=== PATIENT | female | born 1950 | race Caucasian/White ===

== ENCOUNTER 2019-02-16 13:17 | Emergency (ER) | payer BC, MEDICAID ==
[~2019-02-16] VITALS: Ht 160 cm; Wt 82.0 kg
[2019-02-16] MEDS ORDERED: OMEP20CA5 PO (13:24)
[2019-02-16] MEDS ORDERED: ASPI-1393 PO (13:24)
[2019-02-16] MEDS ORDERED: TETANUS, DIPHTHERIA, PERTUSSIS VAC/PF 0.5ML (>7YR OLD) IM ONE (14:30)
[2019-02-16] MEDS ORDERED: ACETAMINOPHEN 325MG TABLET PO ONE (14:30)
[2019-02-16] MEDS ORDERED: BACITRACIN ZINC OINT UDPKT TOP ONE (14:30)
[2019-02-16] MEDS ORDERED: BACITRACIN 15GM TUBE TOP NR (15:15)
[2019-02-16] MEDS ORDERED: LIDOCAINE HCL/PF 1% 10 MG/ML 5ML VIAL IJ ONE (15:45)
[2019-02-16 17:14] VITALS: BP 129/61
== END 2019-02-16 17:14 | disposition home or self-care (01) ==
LOC: ER 13:17
DX: S91.012A Laceration without foreign body, left ankle, initial encounter (principal); S90.414A Abrasion, right lesser toe(s), initial encounter; I51.9 Heart disease, unspecified; E11.9 Type 2 diabetes mellitus without complications; Z95.2 Presence of prosthetic heart valve; Z90.49 Acquired absence of other specified parts of digestive tract; Z98.890 Other specified postprocedural states; Z79.82 Long term (current) use of aspirin; W54.0XXA Bitten by dog, initial encounter; Y93.89 Activity, other specified; Y92.89 Other specified places as the place of occurrence of the external cause; Y99.8 Other external cause status
CPT/HCPCS: 12002; 73610; 73630; 90471; 90715; 99283

== ENCOUNTER 2019-02-19 12:02 | Emergency (ER) | payer BC, MEDICAID ==
[~2019-02-19] VITALS: Ht 157.5 cm; Wt 85.0 kg
[~2019-02-19 12:02] MED LIST: ASPI-1393 PO; OMEP20CA5 PO
[2019-02-19 13:32] VITALS: BP 142/86
== END 2019-02-19 15:01 | disposition home or self-care (01) ==
LOC: ER 12:02
DX: S91.312D Laceration without foreign body, left foot, subsequent encounter (principal); Z88.0 Allergy status to penicillin; Z79.82 Long term (current) use of aspirin; Z90.89 Acquired absence of other organs; X58.XXXD Exposure to other specified factors, subsequent encounter
CPT/HCPCS: 99283

== ENCOUNTER 2019-02-21 23:26 | Inpatient (IN) | payer MEDICARE, MEDICAID ==
[~2019-02-21] VITALS: Ht 153 cm; Wt 84.8 kg
[2019-02-22] MEDS ORDERED: VANCOMYCIN 1 G PREMIX 200 ML IV SCH ×2 (01:45→20:00)
[2019-02-22] MEDS ORDERED: LEVOFLOXACIN 500MG PREMIX 100 ML IV ONE (01:45)
[2019-02-22 02:18] LABS: BASOPHILS % 0.9 % (0.0-2.0); EOSINOPHILS % 3.9 % (0.0-5.0); HEMATOCRIT. 34.8 % (36.0-48.0); HEMOGLOBIN. 11.9 g/dL (12.0-16.0); LYMPHOCYTES % 18.7 % (20.0-50.0); MEAN CORPUSCULAR HEMOGLOBIN 29.8 pg (28.0-32.0); MEAN CORPUSCULAR VOLUME 87.5 fL (81.0-99.0); MEAN PLATELET VOLUME 7.9 fl (7.4-10.4); MONOCYTES % 11.3 % (2.0-8.0); NEUTROPHILS % 65.2 % (40.0-76.0); PLATELET 77 x1000/uL (130-400); RED BLOOD CELL COUNT 3.98 mill/uL (4.2-5.4); RED CELL DISTRIBUTION WIDTH 15.4 % (11.6-14.6)
[2019-02-22 02:28] LABS: CHLORIDE 108 mEq/L (98-107)
[2019-02-22 05:00] VITALS: BP 114/45
[2019-02-22] MEDS: MORPHINE SULFATE 2 MG/ML CPJ (NOT FOR IM USE) IV PRN ×3 (06:27→23:54)
[2019-02-22] MEDS ORDERED: AM500 PO (07:46)
[2019-02-22] MEDS ORDERED: ADAL20KI SQ (07:46)
[2019-02-22 08:00] VITALS: BP 120/57
[2019-02-22] MEDS ORDERED: ENOXAPARIN 40MG/0.4ML SYR SUBCUT SCH (09:00)
[2019-02-22 10:12] LABS: EOSINOPHILS % 3.9 % (0.0-5.0); HEMATOCRIT. 33.8 % (36.0-48.0); HEMOGLOBIN. 11.3 g/dL (12.0-16.0); LYMPHOCYTES % 24.2 % (20.0-50.0); MEAN CORPUSCULAR HEMOGLOBIN 29.5 pg (28.0-32.0); MEAN CORPUSCULAR VOLUME 87.9 fL (81.0-99.0); MONOCYTES % 12.7 % (2.0-8.0); NEUTROPHILS % 58.2 % (40.0-76.0); PLATELET 76 x1000/uL (130-400); RED BLOOD CELL COUNT 3.84 mill/uL (4.2-5.4); RED CELL DISTRIBUTION WIDTH 15.4 % (11.6-14.6)
[2019-02-22 10:29] LABS: CHLORIDE 108 mEq/L (98-107)
[2019-02-22 12:00] VITALS: BP 115/65
[2019-02-22 16:00] VITALS: BP 105/61
[2019-02-22] MEDS: MEROPENEM 500 MG in SODIUM CHLORIDE 0.9% 50 ML IV SCH ×2 (17:51→23:40)
[2019-02-22] MEDS ORDERED: ONDANSETRON HCL 4MG/2ML INJ IV PRN (18:00)
[2019-02-22] MEDS: VANCOMYCIN 1 G PREMIX 200 ML IV SCH (20:26)
[2019-02-23] VITALS: BP 135/61
[2019-02-23 04:00] VITALS: BP 102/46
[2019-02-23 06:04] LABS: HEMATOCRIT. 33.7 % (36.0-48.0); HEMOGLOBIN. 11.4 g/dL (12.0-16.0); MEAN CORPUSCULAR HEMOGLOBIN 29.5 pg (28.0-32.0); MEAN CORPUSCULAR VOLUME 87.4 fL (81.0-99.0); PLATELET 76 x1000/uL (130-400); RED BLOOD CELL COUNT 3.86 mill/uL (4.2-5.4); RED CELL DISTRIBUTION WIDTH 15.6 % (11.6-14.6)
[2019-02-23 06:24] LABS: CHLORIDE 108 mEq/L (98-107)
[2019-02-23 08:00] VITALS: BP 106/73
[2019-02-23] MEDS: MEROPENEM 500 MG in SODIUM CHLORIDE 0.9% 50 ML IV SCH ×2 (08:40→15:49)
[2019-02-23 10:41] LABS: CLARITY URINE CLEAR (CLEAR); COLOR URINE YELLOW (YELLOW); KETONES URINE NEGATIVE (NEGATIVE); LEUKOCYTE ESTERASE URINE NEGATIVE (NEGATIVE); NITRITE URINE NEGATIVE (NEGATIVE); OCCULT BLOOD URINE NEGATIVE (NEGATIVE); PROTEIN URINE NEGATIVE (NEGATIVE); SPECIFIC GRAVITY URINE 1.014 (1.005-1.030); UROBILINOGEN URINE 0.2 E.U./dL (0.2-1.0)
[2019-02-23 11:55] LABS: PLATELET ESTIMATE DECREASED
[2019-02-23 12:00] VITALS: BP 106/73
[2019-02-23] MEDS: MORPHINE SULFATE 2 MG/ML CPJ (NOT FOR IM USE) IV PRN ×2 (12:47→17:39)
[2019-02-23] MEDS ORDERED: LIDOCAINE HCL/EPINEPHRINE 1%-EPI 1:100,000 20 ML VIAL INFIL ONE (14:00)
[2019-02-23 16:00] VITALS: BP 107/65
[2019-02-23 20:00] VITALS: BP 130/66
[2019-02-23] MEDS: MORPHINE SULFATE 4 MG/ML CPJ (NOT FOR IM USE) IV PRN (20:12)
[2019-02-23] MEDS: ACETAMINOPHEN 325MG TABLET PO PRN (20:13)
[2019-02-23] MEDS: VANCOMYCIN 1 G PREMIX 200 ML IV SCH (21:26)
[2019-02-24] VITALS: BP 123/58
[2019-02-24 04:00] VITALS: BP 126/58
[2019-02-24 05:59] LABS: CHLORIDE 108 mEq/L (98-107)
[2019-02-24 06:21] LABS: BASOPHILS % 0.8 % (0.0-2.0); EOSINOPHILS % 4.6 % (0.0-5.0); HEMATOCRIT. 33.1 % (36.0-48.0); HEMOGLOBIN. 11.4 g/dL (12.0-16.0); LYMPHOCYTES % 23.2 % (20.0-50.0); MEAN CORPUSCULAR VOLUME 87.2 fL (81.0-99.0); MEAN PLATELET VOLUME 8.1 fl (7.4-10.4); NEUTROPHILS % 58.4 % (40.0-76.0); PLATELET 84 x1000/uL (130-400); RED BLOOD CELL COUNT 3.79 mill/uL (4.2-5.4); RED CELL DISTRIBUTION WIDTH 15.3 % (11.6-14.6)
[2019-02-24 08:00] VITALS: BP 116/60
[2019-02-24] MEDS: MEROPENEM 500 MG in SODIUM CHLORIDE 0.9% 50 ML IV SCH ×5 (09:34→23:17)
[2019-02-24] MEDS: MORPHINE SULFATE 2 MG/ML CPJ (NOT FOR IM USE) IV PRN ×2 (09:41→18:18)
[2019-02-24 12:00] VITALS: BP 123/54
[2019-02-24] MEDS: VANCOMYCIN 1 G PREMIX 200 ML IV SCH (12:04)
[2019-02-24 16:00] VITALS: BP 122/48
[2019-02-24 20:00] VITALS: BP 117/60
[2019-02-25] VITALS: BP 128/64
[2019-02-25] MEDS: VANCOMYCIN 1 G PREMIX 200 ML IV SCH ×2 (01:34→13:16)
[2019-02-25] MEDS: MORPHINE SULFATE 2 MG/ML CPJ (NOT FOR IM USE) IV PRN ×2 (03:42→10:06)
[2019-02-25 04:00] VITALS: BP 130/59
[2019-02-25 06:25] LABS: CHLORIDE 109 mEq/L (98-107)
[2019-02-25 08:00] VITALS: BP 115/54
[2019-02-25] MEDS: MEROPENEM 500 MG in SODIUM CHLORIDE 0.9% 50 ML IV SCH ×2 (09:08→18:09)
[2019-02-25 12:00] VITALS: BP 117/51
[2019-02-25 16:00] VITALS: BP 125/50
[2019-02-25 20:00] VITALS: BP 152/71
[2019-02-26] VITALS: BP 123/49
[2019-02-26] MEDS: MEROPENEM 500 MG in SODIUM CHLORIDE 0.9% 50 ML IV SCH ×2 (00:31→08:35)
[2019-02-26] MEDS: MORPHINE SULFATE 4 MG/ML CPJ (NOT FOR IM USE) IV PRN (00:32)
[2019-02-26] MEDS: VANCOMYCIN 1 G PREMIX 200 ML IV SCH ×2 (01:24→13:18)
[2019-02-26 04:00] VITALS: BP 139/64
[2019-02-26 08:00] VITALS: BP 134/61
[2019-02-26 12:24] VITALS: BP 124/50
[2019-02-26 16:00] VITALS: BP 118/58
[2019-02-26] MEDS: CEFTRIAXONE 1 G PREMIX 50 ML IV SCH (17:01)
[2019-02-26] MEDS: ACETAMINOPHEN 325MG TABLET PO PRN (17:07)
[2019-02-26 20:00] VITALS: BP 114/52
[2019-02-27] VITALS: BP 120/59
[2019-02-27 04:00] VITALS: BP 123/55
[2019-02-27 06:35] LABS: BASOPHILS % 0.7 % (0.0-2.0); HEMOGLOBIN. 11.7 g/dL (12.0-16.0); LYMPHOCYTES % 22.9 % (20.0-50.0); MEAN CORPUSCULAR HEMOGLOBIN 29.9 pg (28.0-32.0); MEAN CORPUSCULAR VOLUME 86.9 fL (81.0-99.0); MEAN PLATELET VOLUME 8.4 fl (7.4-10.4); MONOCYTES % 14.5 % (2.0-8.0); NEUTROPHILS % 57.9 % (40.0-76.0); PLATELET 77 x1000/uL (130-400); RED BLOOD CELL COUNT 3.91 mill/uL (4.2-5.4); RED CELL DISTRIBUTION WIDTH 15.3 % (11.6-14.6)
[2019-02-27 07:30] LABS: CHLORIDE 113 mEq/L (98-107)
[2019-02-27 08:00] VITALS: BP 121/64
[2019-02-27] MEDS: CEFTRIAXONE 1 G PREMIX 50 ML IV SCH (08:42)
[2019-02-27] MEDS: ACETAMINOPHEN 325MG TABLET PO PRN (09:30)
[2019-02-27 12:30] VITALS: BP 133/63
[2019-02-27 14:11] VITALS: BP 133/63
== END 2019-02-27 15:50 | disposition home or self-care (01) | DRG 579 ==
LOC: ER 23:26 → 6EST 02-22 03:31 → EDBEDREQ 02-22 03:34 → EDBEDREQTM 02-22 03:34 → ENRESERV 02-22 03:54 → 6EST 02-24 22:39
PROVIDERS: ADMIT Internal Medicine Nephrology; ATTEND Nurse Practitioner Family
PROC: 0J9R0ZZ Drainage of Left Foot Subcutaneous Tissue and Fascia, Open Approach (ICD-10-PCS; principal; 2019-02-23)
DX: L03.116 Cellulitis of left lower limb (principal); E43 Unspecified severe protein-calorie malnutrition; L97.909 Non-pressure chronic ulcer of unspecified part of unspecified lower leg with unspecified severity; L03.115 Cellulitis of right lower limb; I10 Essential (primary) hypertension; S91.052A Open bite, left ankle, initial encounter; E87.8 Other disorders of electrolyte and fluid balance, not elsewhere classified; D69.6 Thrombocytopenia, unspecified; L02.416 Cutaneous abscess of left lower limb; S91.051A Open bite, right ankle, initial encounter; D63.8 Anemia in other chronic diseases classified elsewhere; L98.499 Non-pressure chronic ulcer of skin of other sites with unspecified severity; E11.9 Type 2 diabetes mellitus without complications; B96.89 Other specified bacterial agents as the cause of diseases classified elsewhere; E66.01 Morbid (severe) obesity due to excess calories; R16.1 Splenomegaly, not elsewhere classified; K74.60 Unspecified cirrhosis of liver; K80.20 Calculus of gallbladder without cholecystitis without obstruction; W54.0XXA Bitten by dog, initial encounter; Z90.49 Acquired absence of other specified parts of digestive tract; Z68.36 Body mass index [BMI] 36.0-36.9, adult; Y93.89 Activity, other specified; Y92.89 Other specified places as the place of occurrence of the external cause; Y99.8 Other external cause status; Z88.0 Allergy status to penicillin; Z91.09 Other allergy status, other than to drugs and biological substances; Z71.3 Dietary counseling and surveillance
CPT/HCPCS: 36415; 73610; 76700; 76881; 80048; 80202; 87070; 87075; 87077; 87186; 96365; 96368; 97162; 99285; J0696; J1956; J2185; J2270; J3370; J3490